=== PATIENT | male | born 1955 | race Caucasian/White ===

== ENCOUNTER 2018-07-06 21:27 | Emergency (ER) | payer MEDICAID ==
[~2018-07-06] VITALS: Ht 175.3 cm; Wt 99.8 kg
[~2018-07-06 21:27] MED LIST: ADDERALL 15 MG15 MG PO; ASPIR 8181 MG PO; CIPRO500 MG PO; CYMBALTA30 MG PO; FLAGYL500 MG PO; HYDROCODONE-AP1 EAC6 PO; HYDROCODONE-APA1 TA1 PO; LIPITOR 20 MG T20 M1 PO; LISINOPRIL20 MG PO; LUCENTIS0.3 MG/0.0; MUCINEX600 MG PO; NAPROSYN500 MG PO; NORVASC2.5 MG PO; ZPAK PO
[2018-07-06 22:51] LABS: ABSOLUTE BASOPHILS 0.2 thou/uL (0.0-0.2); ABSOLUTE EOSINOPHILS 0.2 thou/uL (0.0-0.7); ABSOLUTE LYMPHOCYTES 2.8 thou/uL (0.8-5.3); ABSOLUTE MONOCYTES 1.1 thou/uL (0.0-1.2); ABSOLUTE NEUTROPHILS 4.9 thou/uL (1.6-8.1); BASOPHILS 1.7 %; HEMATOCRIT 42.8 % (42.0-52.0); HEMOGLOBIN 14.4 gm/dL (14.0-18.0); LYMPHOCYTES 30.5 %; MCH 30.5 pg (26.0-34.0); MCHC 33.6 g/dL (28.0-37.0); MCV 90.9 fL (80.0-100.0); NUCLEATED RBCS 0 /100WBC; PLATELET COUNT* 202 thou/uL (150-400); POLYS 53.8 %; RBC 4.71 mil/uL (4.50-6.00); RDW-CV 13.2 % (10.5-14.5); WBC 9.1 thou/uL (4.0-11.0)
[2018-07-06 22:53] LABS: CALCIUM 8.8 mg/dL (8.5-10.1); CREATININE 1.6 mg/dL (0.6-1.3); POTASSIUM 3.7 mmol/L (3.5-5.1)
[2018-07-06 22:57] LABS: ALBUMIN 3.8 g/dL (3.4-5.0); TOTAL BILIRUBIN 0.5 mg/dL (<0.1-1.0); TOTAL PROTEIN 7.3 g/dL (6.4-8.2)
[2018-07-06] MEDS ORDERED: NORCO 5-325 TA1 EAC1 PO (23:23)
[2018-07-06] MEDS ORDERED: ERYTHROMYCIN E3.5 G2 OPHTHALMIC (23:23)
[2018-07-06 23:39] VITALS: BP 150/88
== END 2018-07-06 23:40 | disposition home or self-care (01) ==
LOC: M.ERS 21:27
PROVIDERS: Nurse Practitioner Family
DX: S05.8X1A Other injuries of right eye and orbit, initial encounter (principal); I10 Essential (primary) hypertension; F17.210 Nicotine dependence, cigarettes, uncomplicated; W22.8XXA Striking against or struck by other objects, initial encounter; Y93.89 Activity, other specified; Y92.89 Other specified places as the place of occurrence of the external cause; Y99.8 Other external cause status

== ENCOUNTER 2020-03-22 23:21 | Emergency (ER) | payer OTHER ==
[~2020-03-22] VITALS: Ht 180.3 cm; Wt 104.3 kg
[~2020-03-22 23:21] MED LIST changes: +ERYTHROMYCIN E3.5 G2 OPHTHALMIC; +NORCO 5-325 TA1 EAC1 PO
[2020-03-22] MEDS ORDERED: SERTRALINE HCL100 MG PO (23:35)
[2020-03-22] MEDS ORDERED: AVAPRO 150 MG150 M1 PO (23:36)
[2020-03-22] MEDS ORDERED: XANAX1 MG PO (23:36)
[2020-03-22] MEDS ORDERED: VICODIN HP 10-1 EAC1 PO (23:36)
[2020-03-23 00:36] LABS: ABSOLUTE BASOPHILS 0.1 thou/uL (0.0-0.2); ABSOLUTE EOSINOPHILS 0.1 thou/uL (0.0-0.7); ABSOLUTE LYMPHOCYTES 2.1 thou/uL (0.8-5.3); ABSOLUTE MONOCYTES 0.7 thou/uL (0.0-1.2); ABSOLUTE NEUTROPHILS 5.6 thou/uL (1.6-8.1); BASOPHILS 0.7 %; EOSINOPHILS 1.5 %; HEMATOCRIT 42.5 % (42.0-52.0); HEMOGLOBIN 14.4 gm/dL (14.0-18.0); LYMPHOCYTES 24.4 %; MCH 30.6 pg (26.0-34.0); MCHC 33.9 g/dL (28.0-37.0); MCV 90.3 fL (80.0-100.0); MPV 8.6 fl. (7.2-11.1); NUCLEATED RBCS 0 /100WBC; PLATELET COUNT* 168 thou/uL (150-400); POLYS 65.4 %; RBC 4.71 mil/uL (4.50-6.00); RDW-CV 13.8 % (10.5-14.5); WBC 8.5 thou/uL (4.0-11.0)
[2020-03-23 00:50] LABS: CALCIUM 8.3 mg/dL (8.5-10.1); CREATININE 1.5 mg/dL (0.6-1.3); POTASSIUM 4.4 mmol/L (3.5-5.1)
[2020-03-23 00:54] LABS: ALBUMIN 3.5 g/dL (3.4-5.0); TOTAL BILIRUBIN 0.3 mg/dL (<0.1-1.0); TOTAL PROTEIN 6.7 g/dL (6.4-8.2)
[2020-03-23 04:12] LABS: AMP/METHAMP POSITIVE (Negative); BARBITURATES Negative (Negative); BENZODIAZEPINES POSITIVE (Negative); COCAINE Negative (Negative); METHADONE Negative (Negative); OPIATES POSITIVE (Negative); PCP Negative (Negative); THC POSITIVE (Negative)
[2020-03-23 04:18] LABS: URINE BILIRUBIN NEGATIVE (Negative); URINE BLOOD NEGATIVE (Negative); URINE CLARITY CLEAR; URINE COLOR YELLOW; URINE GLUCOSE-RANDOM NEGATIVE (Negative); URINE KETONES NEGATIVE (Negative); URINE LEUKOCYTES-REFLEX NEGATIVE (Negative); URINE NITRITE-REFLEX NEGATIVE (Negative); URINE PROTEIN TRACE (Negative); URINE SPECIFIC GRAVITY >= 1.030 (1.005-1.030); URINE UROBILINOGEN 0.2 E.U./dl (0.2-1.0)
[2020-03-23 04:34] VITALS: BP 127/85
== END 2020-03-23 04:34 | disposition home or self-care (01) ==
LOC: M.ERS 23:21
PROVIDERS: Emergency Medicine
DX: M54.5 Low back pain (principal); I10 Essential (primary) hypertension; F17.210 Nicotine dependence, cigarettes, uncomplicated

== ENCOUNTER 2021-05-21 22:47 | Emergency (ER) | payer OTHER ==
[~2021-05-21] VITALS: Ht 175.3 cm; Wt 99.8 kg
[~2021-05-21 22:47] MED LIST changes: +AVAPRO 150 MG150 M1 PO; +SERTRALINE HCL100 MG PO; +VICODIN HP 10-1 EAC1 PO; +XANAX1 MG PO
[2021-05-21 23:05] VITALS: BP 162/99
== END 2021-05-22 01:00 | disposition left against medical advice (07) ==
LOC: M.ERS 22:47
DX: M79.604 Pain in right leg (principal); I10 Essential (primary) hypertension; F17.210 Nicotine dependence, cigarettes, uncomplicated; Z86.73 Personal history of transient ischemic attack (TIA), and cerebral infarction without residual deficits; V89.2XXA Person injured in unspecified motor-vehicle accident, traffic, initial encounter; Y93.89 Activity, other specified; Y92.89 Other specified places as the place of occurrence of the external cause; Y99.8 Other external cause status